=== PATIENT | female | born 1985 | race Caucasian/White ===

== ENCOUNTER → 2017-08-02 16:53 | Outpatient (CLI) | payer BC, SELFPAY ==
[2017-08-02 17:51] LABS: Absolute Lymphocyte Count 2.53 X10^3/ul (0.83-4.51); Absolute Neutrophil Count 5.6 X10^3/uL (2.0-7.7); Basophil# 0.02 X10^3/uL; Basophil% 0.2 % (0-1); Eosinophil# 0.18 X10^3/uL; Lymphocyte # 2.53 X10^3/ul (4.0); Lymphocyte % 28.4 % (19-41); Mean Corp Hgb Conc 32.5 g/gl (32-36); Mean Corpuscular Volume 89.3 fL (81-99); Mean Platelet Vol. 9.7 fl (6.2-12.0); Monocyte# 0.52 X10^3/uL; Monocyte% 5.8 % (0-10); Neutrophil # 5.63 X10^3/uL (2.7-7.7); Neutrophil % 63.3 % (47-70); Platelet Count 299 K/mm3 (150-450); RBC Distribution Width CV 12.6 % (11.6-14.6); RBC Distribution Width SD 40.9 fl (35.1-43.9); Red Blood Count 4.48 M/mm3 (4.2-5.4); White Blood Count 8.9 K/mm3 (4.4-11.0)
[2017-08-02 17:52] LABS: POSITIVE COUNT NO; POSITIVE DIFFERENTIAL NO; POSITIVE MORPHOLOGY NO
[2017-08-02 18:13] LABS: ALB/GLOB Ratio 0.9 RATIO (0.9-2.4); AST(SGOT) 17 U/L (15-37); Alanine Aminotransfer ALT/SGPT 24 U/L (13-56); Albumin, Serum 3.5 g/dL (3.2-5.0); Alkaline Phosphatase 86 U/L (45-117); Anion Gap 8 (5-15); BUN 21 mg/dL (7-18); BUN/Creat Ratio 22.9 RATIO (10-20); Calcium,Total 9.2 mg/dL (8.5-10.1); Chloride 104 mmol/L (98-107); Creatinine, Serum 0.92 mg/dL (0.55-1.02); EST Glomerular Filtration Rate 76 mL/min (>60); Est Glom Filt Rate - Afr Amer 92 mL/min (>60); Globulin 3.7 g/dL (2.2-4.2); Glucose 81 mg/dL (74-106); Potassium 3.9 mmol/L (3.5-5.1); Protein, Total 7.2 g/dL (6.4-8.2); Sodium Level 138 mmol/L (136-145)
[2017-08-05 04:14] LABS: HEPATITIS B SURFACE AG Negative (Negative); Hepatitis A AB, Total Negative (Negative); Hepatitis A IgM Antibody Negative (Negative); Hepatitis B Core AB IgM Negative (Negative); Hepatitis B Core Ab Total Negative (Negative); Hepatitis C Ab 0.2 s/co ratio (0.0-0.9); QNTFERON TB Ag Minus Nil Value 0.02 IU/mL (.); QNTFERON TB Ag Value 0.05 IU/mL (.); QNTFERON TB Mitogen Value > 10.00 IU/mL (.); QNTFERON TB Nil Value 0.03 IU/mL (.)
[2017-08-05 13:16] LABS: Hep B Surface Antibodies Reactive (.); QNTIFERON TB Gold Negative (Negative)
== END ==
PROVIDERS: Family Provider Internal Medicine; PCP Internal Medicine; Visit Provider Dermatology Pediatric Dermatology
DX: L40.0 Psoriasis vulgaris (principal)
CPT/HCPCS: 36415; 80053; 85025; 86480; 86704; 86705; 86706; 86708; 86709; 86803; 87340

== ENCOUNTER → 2017-09-21 16:27 | Outpatient (CLI) | payer BC, SELFPAY ==
[2017-09-23 11:19] LABS: ASO Titer 781.6 IU/mL (0.0-200.0)
== END ==
PROVIDERS: Family Provider Internal Medicine; PCP Internal Medicine; Visit Provider Otolaryngology Otolaryngology/Facial Plastic Surgery
DX: J32.9 Chronic sinusitis, unspecified (principal); J03.90 Acute tonsillitis, unspecified; J02.9 Acute pharyngitis, unspecified; Z86.19 Personal history of other infectious and parasitic diseases
CPT/HCPCS: 36415; 86060; 87070

== ENCOUNTER → 2017-10-12 16:32 | Outpatient (CLI) | payer BC, SELFPAY ==
--- NOTE | 2017-10-12 16:35 | CT_ITS ---
STUDY: CT MAXILLOFACIAL SINUSES REASON FOR EXAM: Female, 31 years old. Sinusitis. RADIATION DOSAGE (If Supplied By Facility): CTDIvol = ( 33.06 ) mGy, DLP = ( 730.55 ) mGycm TECHNIQUE: The patient was scanned in a multi detector CT scanner. High resolution axial imaging was performed without the administration of intravenous contrast material. Sagittal and coronal images were reconstructed. Individualized dose optimization techniques were used for this CT. COMPARISON: None. FINDINGS: FRONTAL SINUSES: Normal aeration, without significant mucosal inflammatory disease. ETHMOIDAL SINUSES: Mild mucosal thickening involving many of the ethmoid air cells and on the right 2 or 3 ethmoid air cells are almost completely opacified. Findings are probably chronic mucosal thickening. MAXILLARY SINUSES: Prominent soft tissue thickening along the anterior aspect of the right maxillary sinus including a probable 2 cm mucous retention cyst. 1.8 cm mucous retention cyst in the floor of the left maxillary sinus. Minimal air-fluid levels in both maxillary sinuses. SPHENOIDAL SINUSES: Very small air-fluid level. Ostiomeatal complexes are narrowed bilaterally because of mucosal thickening. Normal bilateral middle turbinates. Normal bilateral inferior turbinates. Normal midline nasal septum. There is patency of the bilateral nasal airways. The visualized osseous structures are normal. The visualized bilateral orbital contents are normal. CT/Sinus/Facial Bone IMPRESSION: Findings consistent with chronic sinus disease in the ethmoid air cells and maxillary sinuses. Also very small air-fluid levels in both maxillary sinuses and the sphenoid sinuses could be acute sinusitis. Electronically Signed: Geo Barboza MD at 23:47 EDT , Service support ,
== END ==
PROVIDERS: Family Provider Internal Medicine; PCP Internal Medicine; Visit Provider Otolaryngology Otolaryngology/Facial Plastic Surgery
DX: J32.9 Chronic sinusitis, unspecified (principal); J02.9 Acute pharyngitis, unspecified; R93.0 Abnormal findings on diagnostic imaging of skull and head, not elsewhere classified
CPT/HCPCS: 70486

== ENCOUNTER → 2018-02-27 18:05 | Outpatient (CLI) | payer BC, SELFPAY | PROVIDERS: Family Provider Internal Medicine; PCP Internal Medicine; Referring Provider Otolaryngology; Visit Provider Otolaryngology | DX: J02.9 Acute pharyngitis, unspecified (principal) | CPT/HCPCS: 87070 ==

== ENCOUNTER → 2018-06-01 08:42 | Outpatient (CLI) | payer BC, SELFPAY ==
[2018-06-01 10:21] LABS: Absolute Lymphocyte Count 1.85 X10^3/ul (0.83-4.51); Absolute Neutrophil Count 4.1 X10^3/uL (2.0-7.7); Basophil# 0.02 X10^3/uL; Basophil% 0.3 % (0-1); Hematocrit 43.2 % (37-47); Hemoglobin 14.2 g/dl (12.0-15.0); Lymphocyte # 1.85 X10^3/ul (4.0); Lymphocyte % 27.3 % (19-41); Mean Corp Hgb Conc 32.9 g/gl (32-36); Mean Corpuscular Hgb 29.3 pg (27.0-32.0); Mean Corpuscular Volume 89.1 fL (81-99); Mean Platelet Vol. 10.1 fl (6.2-12.0); Monocyte# 0.57 X10^3/uL; Monocyte% 8.4 % (0-10); Neutrophil # 4.11 X10^3/uL (2.7-7.7); Neutrophil % 60.7 % (47-70); Platelet Count 310 K/mm3 (150-450); RBC Distribution Width CV 12.7 % (11.6-14.6); Red Blood Count 4.85 M/mm3 (4.2-5.4); White Blood Count 6.8 K/mm3 (4.4-11.0)
[2018-06-01 10:23] LABS: POSITIVE COUNT NO; POSITIVE DIFFERENTIAL NO; POSITIVE MORPHOLOGY NO
[2018-06-01 10:31] LABS: AST(SGOT) 27 U/L (15-37); Alanine Aminotransfer ALT/SGPT 39 U/L (13-56); Albumin, Serum 3.6 g/dL (3.2-5.0); Alkaline Phosphatase 98 U/L (45-117); Anion Gap 7 (5-15); BUN 13 mg/dL (7-18); BUN/Creat Ratio 16.7 RATIO (10-20); Chloride 105 mmol/L (98-107); Creatinine, Serum 0.78 mg/dL (0.55-1.02); EST Glomerular Filtration Rate 92 mL/min (>60); Est Glom Filt Rate - Afr Amer 111 mL/min (>60); Globulin 3.7 g/dL (2.2-4.2); Glucose 76 mg/dL (74-106); Potassium 4.1 mmol/L (3.5-5.1); Protein, Total 7.3 g/dL (6.4-8.2); Sodium Level 138 mmol/L (136-145)
[2018-06-04 03:05] LABS: HEPATITIS B SURFACE AG Negative (Negative); Hepatitis A AB, Total Negative (Negative); Hepatitis A IgM Antibody Negative (Negative); Hepatitis B Core AB IgM Negative (Negative); Hepatitis B Core Ab Total Negative (Negative); Hepatitis C Ab <0.1 s/co ratio (0.0-0.9); QNTFERON TB Mitogen Value > 10.00 IU/mL (.); QNTFERON TB Nil Value 0.02 IU/mL (.); QNTFERON TB1+ Ag Value 0.02 IU/mL (.); QNTFERON TB2+ Ag Value 0.02 IU/mL (.)
[2018-06-04 12:58] LABS: Hep B Surface Antibodies Reactive (.); QNTIFERON TB Positive Criteria Negative (Negative)
== END ==
PROVIDERS: Family Provider Internal Medicine; PCP Internal Medicine; Referring Provider Dermatology Pediatric Dermatology; Visit Provider Dermatology Pediatric Dermatology
DX: L40.0 Psoriasis vulgaris (principal)
CPT/HCPCS: 36415; 80053; 85025; 86480; 86704; 86705; 86706; 86708; 86709; 86803; 87340

== ENCOUNTER → 2018-06-14 17:28 | Outpatient (CLI) | payer BC, SELFPAY | PROVIDERS: Family Provider Internal Medicine; PCP Internal Medicine; Referring Provider Otolaryngology Otolaryngology/Facial Plastic Surgery; Visit Provider Otolaryngology Otolaryngology/Facial Plastic Surgery | DX: J32.9 Chronic sinusitis, unspecified (principal); J20.9 Acute bronchitis, unspecified | CPT/HCPCS: 87070 ==

== ENCOUNTER 2022-10-13 14:21 | Inpatient (IN) | payer BC, SELFPAY ==
[2022-10-13 13:28] VITALS: BMI 27.6
[2022-10-13 13:31] VITALS: BP 124/78; PULSE 115; RESP 14; TEMP 36.8; O2SAT 99
--- NOTE | 2022-10-13 14:51 | PCM.HP.BLA ---
History and Physical Date of Admission: 10/13/22 Sherine Fuentes is a 36 year old female who presents for problem visit pelvic pain and heavy menses. ? HPI: Heavy bleeding x 4 days this past menses. Spotting yesterday. Had low grade fever yesterday 101.4 tympanic last pm. Body aches. Cramping during menses and now has pain to mid-pelvis and RLQ that feels more sharp and stabbing. S/p appendectomy and cholecystectomy. History of small ovarian cyst. No urinary symptoms. No diarrhea or constipation. No nausea or vomiting. Last ate supper with no problems. No one else sick in the family. Menses usually every 28 days lasting 3 to 8 days of bleeding which consist of 3 to 4 days of moderate flow followed by 3 to 4 days of spotting. Amoxicillin a few weeks ago for sinus infection. Denies any vaginal symptoms. Contraception: vasectomy. Denies any concern for STD. Pap 2020 and normal with negative HPV. Thyroid studies normal 4 months ago. ? ? OB History T1 L1 SAB0 IAB0 Ectopic0 Multiple0 Live Births1 ? Hospice Aide History ? ? LMP: 12/28/2021, Having periods ? Age at Menarche: ? Age at First : ? Age at Menopause: ? Hospice Aide History Comments: ? Sexual Activity: Yes; Male ? Contraception: Vasectomy ? PAST MEDICAL HISTORY PAST MEDICAL HISTORY Diagnosis Date ? Allergic rhinitis, cause unspecified ? ? Dysmenorrhea ? ? Excessive or frequent menstruation ? ? Genital HSV 2015 ? + culture of cervical ulceration for HSV ? Obesity, unspecified ? ? PID (acute pelvic inflammatory disease) 11/29/2016 ? IUD removed ? PAST SURGICAL HISTORY PAST SURGICAL HISTORY Procedure Laterality Date ? APPENDECTOMY ? ? ? LAPS SURG CHOLECYSTECTOMY W/CHOLANGIOGRAPHY ? 09-10-11 ? [facility] Dr Tiffanie Grimaldo ? FAMILY HISTORY FAMILY HISTORY Problem Relation Age of Onset ? Arthritis Mother ? ? Hypertension Mother ? ? Diabetes Mother ? ? Type II ? Lipids Father ? ? Cancer Maternal Grandmother ? ? renal ? Arthritis Maternal Grandmother ? ? Diabetes Maternal Grandmother ? ? Hypertension Maternal Grandmother ? ? Thyroid Maternal Grandmother ? ? Heart Maternal Grandfather ? ? other (Parkinson's Disease) Paternal Grandmother ? ? Cancer Paternal Grandfather ? ? lung ? Arthritis Maternal Aunt ? ? Diabetes Maternal Aunt ? ? SOCIAL HISTORY Social History ? Tobacco Use ? Smoking status: Never ? Smokeless tobacco: Never Vaping Use ? Vaping Use: Never used Substance Use Topics ? Alcohol use: No ? Drug use: No ? CURRENT MEDICATIONS Current Outpatient Medications Medication Sig ? busPIRone (BUSPAR) 5 mg tablet Take 1 tablet by mouth twice daily. ? iron polysaccharide complex (NU-IRON) 150 mg iron capsule Take 1 capsule by mouth twice daily. ? ascorbic acid, vitamin C, (VITAMIN C) 500 mg tablet Take 1 tablet by mouth once daily. Take with iron to help with absorption ? traZODone (DESYREL) 100 mg tablet Take 1 tablet by mouth daily at bedtime. ? No current facility-administered medications for this visit. ? Allergies As of Date: 10/13/2022 (No Known Allergies) Fully Assessed 01/08/2022 ? ? REVIEW OF SYSTEMS Abdomen: see HPI Bladder: No dysuria, gross hematuria, urinary frequency, urinary urgency, or incontinence. Allergies and current medication updated:Yes ? EXAM: BP 116/72 Wt 162 lb (73.5kg) LMP 10/07/2022 100.1 temporal GENERAL: pleasant, female in moderate distress DERMATOLOGY: warm and mildly flushed CHEST: Normal inspiratory effort ABDOMEN: soft and Moderate tenderness in RLQ, suprapubic area. Mild tenderness LLQ PELVIC: external genitalia normal, normal Bartholin's glands, urethra, [place]'s glands, no vulvar lesions, no cervical lesions, good vaginal support, small amount pale yellow discharge present, normal appearing perineal body and perianal region BIMANUAL: uterus normal size, shape and consistency, no cervical motion tenderness, bilateral adnexal tenderness right more than left and uterine tenderness, no adnexal masses although right ovary enlarged and firm. NEURO: alert and oriented x3,exam grossly non-focal ? ASSESSMENT/PLAN: PYOSALPINX: N70.93 . Pelvic pain in female - ICD9: 625.9, ICD10: R10.2 (primary diagnosis) Fever and tenderness. - PELVIC US WHI to be completed shortly - UA POC - negative - vaginal cultures and STD testing ? . RLQ abdominal pain - ICD9: 789.03, ICD10: R10.31 see above ? Assessment & Plan Assessment/Plan (1) Pyosalpinx: (2) Pelvic pain: (3) Fever: PLAN: Plan admission to [facility] Unasyn 3g IV Q6hr Doxycycline 100mg iv q12 hrs CBC w/ diff daily BMP Zofran for nausa Blood cx x 2 tylenol, toradol regular diet, PO fluids
[2022-10-13 15:16] LABS: Anion Gap 8 (5-15); BUN 10 mg/dL (7-18); BUN/Creat Ratio 12.4 RATIO (10-20); Calcium,Total 10.1 mg/dL (8.5-10.1); Chloride 100 mmol/L (98-107); EST Glomerular Filtration Rate 86 mL/min (>60); Est Glom Filt Rate - Afr Amer 104 mL/min (>60); Estimated Creatinine Clearance 84.76 ml/min; Glucose 103 mg/dL (74-106); Potassium 3.5 mmol/L (3.5-5.1); Sodium Level 138 mmol/L (136-145)
[2022-10-13] MEDS: 0.9% Saline Lock 10 ML Syringe IV (15:26)
[2022-10-13] MEDS: 0.9% Normal Saline 1,000 ML 15 ML IV (15:26)
[2022-10-13] MEDS: Ketorolac 30 MG/ML Syringe IV ×2 (15:27→21:27)
[2022-10-13 16:01] LABS: Absolute Lymphocyte Count 1.61 X10^3/uL (0.83-4.51); Absolute Neutrophil Count 9.9 X10^3/uL (2.0-7.7); Basophil# 0.03 X10^3/uL; Basophil% 0.2 % (0-1); Eosinophil# 0.02 X10^3/uL; Eosinophils% 0.2 % (0-5); Hematocrit 35.9 % (37-47); Hemoglobin 12.2 g/dL (12.0-15.0); Lymphocyte # 1.61 X10^3/ul (0.83-4.51); Lymphocyte % 12.8 % (19-41); Mean Corpuscular Hgb 31.2 pg (27.0-32.0); Mean Corpuscular Volume 91.8 fL (81-99); Mean Platelet Vol. 9.6 fl (6.2-12.0); Monocyte# 0.91 X10^3/uL; Monocyte% 7.3 % (0-10); NRBC Flagged by Analyzer 0 % (0-5); Neutrophil # 9.91 X10^3/uL (2.7-7.7); Platelet Count 337 K/mm3 (150-450); RBC Distribution Width CV 11.8 % (11.6-14.6); RBC Distribution Width SD 39.8 fl (35.1-43.9); Red Blood Count 3.91 M/mm3 (4.2-5.4); White Blood Count 12.5 K/mm3 (4.4-11.0)
[2022-10-13] MEDS: traZODone 50 MG Tablet PO (21:23)
[2022-10-13] MEDS: Iron Polysaccharide Complex 150 MG CAPSULE PO (21:24)
[2022-10-13] MEDS: busPIRone 5 MG Tablet PO (21:24)
[2022-10-14] MEDS: Ketorolac 30 MG/ML Syringe IV ×3 (05:03→20:03)
[2022-10-14] MEDS: Acetaminophen 500 MG Tablet 1000 MG PO ×3 (05:26→22:08)
[2022-10-14 06:31] LABS: Absolute Lymphocyte Count 1.34 X10^3/uL (0.83-4.51); Absolute Neutrophil Count 9.5 X10^3/uL (2.0-7.7); Basophil# 0.03 X10^3/uL; Basophil% 0.2 % (0-1); Eosinophil# 0.11 X10^3/uL; Eosinophils% 0.9 % (0-5); Hematocrit 32.5 % (37-47); Lymphocyte # 1.34 X10^3/ul (0.83-4.51); Mean Corp Hgb Conc 33.8 g/dL (32-36); Mean Corpuscular Hgb 30.9 pg (27.0-32.0); Mean Corpuscular Volume 91.3 fL (81-99); Mean Platelet Vol. 9.6 fl (6.2-12.0); Monocyte# 1.16 X10^3/uL; Monocyte% 9.5 % (0-10); NRBC Flagged by Analyzer 0 % (0-5); Neutrophil # 9.48 X10^3/uL (2.7-7.7); Neutrophil % 77.9 % (47-70); Platelet Count 300 K/mm3 (150-450); RBC Distribution Width CV 11.8 % (11.6-14.6); RBC Distribution Width SD 39.4 fl (35.1-43.9); Red Blood Count 3.56 M/mm3 (4.2-5.4); White Blood Count 12.2 K/mm3 (4.4-11.0)
[2022-10-14 09:12] VITALS: BP 109/61; PULSE 82; RESP 16; TEMP 36.7; O2SAT 100
[2022-10-14] MEDS: Ascorbic Acid 500 MG Tablet PO (09:18)
[2022-10-14] MEDS: Docusate Sodium 100 MG Capsule PO (09:18)
[2022-10-14] MEDS: busPIRone 5 MG Tablet PO ×2 (09:18→22:09)
[2022-10-14] MEDS: Iron Polysaccharide Complex 150 MG CAPSULE PO ×2 (09:18→22:09)
--- NOTE | 2022-10-14 11:50 | CASEMGMT ---
RN?CM?[employer] SUPERVISOR?CM?to room to meet with patient for initial transition planning/care coordination?assessment.?RN?CM?introduced self and role at [facility].? Pt voices understanding and consents to?assessment?at this time.? Pt resting in bed in no distress at this time.? Pt is A/O at this time and answers all questions appropriately.?? Care providers, pharmacy, and demographics verified/updated at this time. PCP: Dr Shaneka Cano Specialists: Dr Jennifer Douglas-STREET WORKER Preferred Pharmacy: [facility] Retail Insurance: [employer] Prescription Benefit:?Yes Living Will/HPOA:? Pt does not currently have LW/HCPOA and declines info at this time.? Pt made aware that she can contact as an out-pt and make appt in the future if she decides he would like to talk with someone about this or would like to utilize [facility] social work for advanced directive completion.??Pt expresses understanding.? LNOK: Mother, Suzanne. Atul Yang Living Arrangements: Lives w/annamaria and 11-yr-old son. Independent Transportation:?Pt states drives self and states no transportation concerns at this time.? DME: ? Denies using any DME and denies needs. HHC/SNF: No hx of either. No needs identified. Pt wishes to return home and states has no concerns with going home at time of discharge.? CM?to follow for any discharge planning/needs.? Pt voices no concerns/needs at this time.? Advised pt to ask for?CM?if any questions/concerns/needs arise.? Voices understanding. PLAN:??Home Nataliia MALDONADON?RN?CM
--- NOTE | 2022-10-14 12:22 | PCM.PN.OB ---
Subjective Subjective Patient states she still having significant amount of pain, especially when she is up and moving around. She states she is able to rest with the pain medication. Her pain was about an 8 out of 10 yesterday and today is about a 6 out of 10. She denies any fevers or chills or night sweats. She denies any chest pain or shortness of breath. She denies any nausea or vomiting. She denies any abnormal vaginal discharge or bleeding. Objective Data Objective Data Vital Signs: Vital Signs Temp Pulse Resp BP Pulse Ox O2 Del Method 98.0 F 82 16 109/61 100 Room Air 10/14/22 09:12 10/14/22 09:12 10/14/22 09:12 10/14/22 09:12 10/14/22 09:12 10/14/22 09:33 Oxygen Delivery Method Room Air Weight: 73 kg Body Mass Index (BMI) 27.6 Intake & Output: Intake and Output for Last 24 Hours 10/12/22 10/13/22 10/14/22 23:59 23:59 23:59 Intake Total 1020.75 / 1020.75 484 / 484 Output Total 100 / 100 Balance 1020.75 / 920.75 384 / 384 Lab / Micro Data Result Diagrams: 10/14/22 04:54 10/13/22 14:33 Labs: Laboratory Results - last 24 hr 10/13/22 14:33: Sodium 138, Potassium 3.5, Chloride 100, Carbon Dioxide 30.0, Anion Gap 8, BUN 10, Creatinine 0.80, Estim Creat Clear Calc 84.76, Est GFR (MDRD) Af Amer 104, Est GFR (MDRD) Non-Af 86, BUN/Creatinine Ratio 12.4, Glucose 103, Calcium 10.1 10/13/22 14:33: WBC 12.5 H, RBC 3.91 L, Hgb 12.2, Hct 35.9 L, MCV 91.8, MCH 31.2, MCHC 34.0, RDW Std Deviation 39.8, RDW Coeff of Clarisse 11.8, Plt Count 337, MPV 9.6, Immature Gran % (Auto) 0.500, Neut % (Auto) 79.0 H, Lymph % (Auto) 12.8 L, [place] % (Auto) 7.3, Eos % (Auto) 0.2, Baso % (Auto) 0.2, Absolute Neuts (auto) 9.9 H, Absolute Lymphs (auto) 1.61, Nucleated RBC % 0 10/14/22 04:54: WBC 12.2 H, RBC 3.56 L, Hgb 11.0 L, Hct 32.5 L, MCV 91.3, MCH 30.9, MCHC 33.8, RDW Std Deviation 39.4, RDW Coeff of Clarisse 11.8, Plt Count 300, MPV 9.6, Immature Gran % (Auto) 0.500, Neut % (Auto) 77.9 H, Lymph % (Auto) 11.0 L, [place] % (Auto) 9.5, Eos % (Auto) 0.9, Baso % (Auto) 0.2, Absolute Neuts (auto) 9.5 H, Absolute Lymphs (auto) 1.34, Nucleated RBC % 0 Physical Exam Narrative Normal: Awake, alert, no acute distress Skin: Warm dry and intact Abdomen: Nondistended, no rebound but some voluntary guarding. No hernias or masses. Assessment & Plan (1) Pyosalpinx: PLAN: PID with bilateral pyosalpinx. Afebrile. White count stable. Discussed with the patient importance of continuing IV antibiotics until patient's pain improves and she remains afebrile. We will continue antibiotics IV for at least 48 hours. Patient is comfortable with this plan. Will reevaluate tomorrow. Recheck CBC in the morning. Review of patient's chart, labs, placing orders, examining and discussing the plan with the patient took 17 minutes today.
[2022-10-14 12:50] VITALS: BP 116/60; PULSE 86; RESP 16; TEMP 37.1; O2SAT 99
[2022-10-14 16:06] VITALS: BP 112/63; PULSE 77; RESP 16; TEMP 36.7; O2SAT 100
--- NOTE | 2022-10-14 18:09 | NURSING ---
report called to quinn on MS3 at [phone].
[2022-10-14] MEDS: 0.9% Saline Lock 10 ML Syringe IV ×2 (20:03→23:19)
[2022-10-14 20:08] VITALS: BP 120/78; PULSE 80; RESP 16; TEMP 36.9; O2SAT 99
[2022-10-14 20:18] VITALS: BP 120/78; PULSE 78; RESP 16; TEMP 36.9; O2SAT 99
[2022-10-14] MEDS: traZODone 50 MG Tablet PO (22:08)
[2022-10-15 02:00] VITALS: BP 116/66; PULSE 75; RESP 16; TEMP 36.8; O2SAT 100
[2022-10-15 02:02] VITALS: BP 116/66; PULSE 75; RESP 16; TEMP 36.8; O2SAT 100
[2022-10-15] MEDS: Acetaminophen 500 MG Tablet 1000 MG PO (07:02)
[2022-10-15] MEDS: Ondansetron 4 MG/2 ML Vial IV (07:02)
[2022-10-15 07:36] LABS: Absolute Neutrophil Count 7.5 X10^3/uL (2.0-7.7); Basophil# 0.02 X10^3/uL; Basophil% 0.2 % (0-1); Eosinophil# 0.18 X10^3/uL; Eosinophils% 1.8 % (0-5); Hematocrit 33.5 % (37-47); Hemoglobin 11.2 g/dL (12.0-15.0); Lymphocyte % 14.2 % (19-41); Mean Corp Hgb Conc 33.4 g/dL (32-36); Mean Corpuscular Hgb 30.9 pg (27.0-32.0); Mean Corpuscular Volume 92.3 fL (81-99); Mean Platelet Vol. 9.2 fl (6.2-12.0); Monocyte# 0.73 X10^3/uL; Monocyte% 7.4 % (0-10); NRBC Flagged by Analyzer 0 % (0-5); Neutrophil # 7.47 X10^3/uL (2.7-7.7); Platelet Count 311 K/mm3 (150-450); RBC Distribution Width CV 11.8 % (11.6-14.6); RBC Distribution Width SD 40.1 fl (35.1-43.9); Red Blood Count 3.63 M/mm3 (4.2-5.4); White Blood Count 9.8 K/mm3 (4.4-11.0)
[2022-10-15 08:00] VITALS: BP 120/70; PULSE 81; RESP 16; TEMP 36.6; O2SAT 100
--- NOTE | 2022-10-15 09:10 | PN_ITS ---
Subjective Subjective Pain is much better Objective Data Objective Data Vital Signs: Vital Signs Temp Pulse Resp BP Pulse Ox O2 Del Method 97.9 F 81 16 120/70 100 Room Air 10/15/22 08:00 10/15/22 08:00 10/15/22 08:00 10/15/22 08:00 10/15/22 08:00 10/15/22 08:00 Oxygen Delivery Method Room Air Weight: 160 lb 14.999 oz Body Mass Index (BMI) 27.6 Intake & Output: Intake and Output for Last 24 Hours 10/13/22 10/14/22 10/15/22 23:59 23:59 23:59 Intake Total 1020.75 / 1020.75 2428 / 2428 224 / 224 Output Total 100 / 100 Balance 1020.75 / 920.75 2328 / 2328 224 / 224 Lab / Micro Data Result Diagrams: 10/15/22 06:20 10/13/22 14:33 Labs: Laboratory Results - last 24 hr 10/15/22 06:20: WBC 9.8, RBC 3.63 L, Hgb 11.2 L, Hct 33.5 L, MCV 92.3, MCH 30.9, MCHC 33.4, RDW Std Deviation 40.1, RDW Coeff of Clarisse 11.8, Plt Count 311, MPV 9.2, Immature Gran % (Auto) 0.400, Neut % (Auto) 76.0 H, Lymph % (Auto) 14.2 L, [place] % (Auto) 7.4, Eos % (Auto) 1.8, Baso % (Auto) 0.2, Absolute Neuts (auto) 7.5, Absolute Lymphs (auto) 1.40, Nucleated RBC % 0 Physical Exam Const alert, oriented x3 and no apparent distress GI soft to palpation, non-tender and non-distended Assessment & Plan Assessment/Plan (1) Pyosalpinx: PLAN: Plan D/c home on oral antibiotics
--- NOTE | 2022-10-15 09:11 | DCINST_ITS ---
Discharge Instructions Diet Discharge Diet: No restrictions Activity Discharge Activity: Return to Normal Activity May resume sexual activity in: 1-2 weeks Weight Bearing Status: Weight bearing as tolerated Dressing / Incision Call your doctor if you observe: Fever of 101 or Higher, Inability to urinate, Using more than 1 pad per hour, Shortness of breath, Fainting spells, Swelling in the ankles and Chest pain Follow Up Care Please Follow Up With: Soraida Dan MD When: 2 weeks Test Results: Test results from this visit will be discussed in further detail at your follow- up appointment, if applicable. Discharge Plan Admission Admit Date/Time: 10/13/22 14:21 Primary Reason for Your Visit: Pelvic infection Attending Provider: Soraida Dan Primary Care Provider: Karen Cano Discharge Orders/Prescriptions Prescriptions: New ondansetron HCl 4 mg tablet 4 mg PO Q8H PRN (Reason: nausea and vomiting) 7 Days Qty: 20 0RF doxycycline hyclate 100 mg tablet 100 mg PO BID Qty: 20 0RF Continued trazodone 50 MG tablet 100 mg PO QHS Label Comments: sleep/mental health acetaminophen [Tylenol] 325 MG tablet 325 mg PO Q6H PRN PRN (Reason: Pain) ibuprofen 200 MG tablet 400 mg PO Q6H PRN PRN (Reason: Pain) polysaccharide iron complex [Ferrex 150] 150 mg iron Capsule 150 mg PO BID ascorbic acid (vitamin C) [Vitamin C] 500 mg Tablet 500 mg PO DAILY buspirone 5 mg Tablet 5 mg PO BID Stool Softener 50 mg Capsule 50 mg PO DAILY Referrals / Follow Up: Karen Cano MD [Primary Care Provider] - Disposition Disposition (needs filled in before D/C Order can be placed): Home, Self Care
[2022-10-15] MEDS: Iron Polysaccharide Complex 150 MG CAPSULE PO (11:08)
[2022-10-15] MEDS: busPIRone 5 MG Tablet PO (11:08)
[2022-10-15] MEDS: Docusate Sodium 100 MG Capsule PO (11:10)
== END 2022-10-15 13:31 | disposition home or self-care (01) | DRG 759 ==
LOC: PCU 10-14 09:51 → MS3 10-14 19:22
PROVIDERS: Admitting Provider Obstetrics & Gynecology; PCP Internal Medicine; Referring Provider Obstetrics & Gynecology; Visit Provider Obstetrics & Gynecology
DX: N70.91 Salpingitis, unspecified (principal); Z90.89 Acquired absence of other organs
CPT/HCPCS: 36415; 80048; 85025; 87040; J7030; A4216; J0295; J2405